=== PATIENT | female | born 1995 | race Caucasian/White ===

== ENCOUNTER 2017-05-15 16:59 | Emergency (ER) | payer OTHER ==
[2017-05-15] MEDS ORDERED: IPRATROPIUM/ALBUTEROL 3 ML DEYVIAL ONE (17:30)
--- NOTE | 2017-05-15 17:48 | EDPHY ---
H & P Stated Complaint: ACL repair today;lots of pain in R leg;can't take deep breaths ,R/O PE - Personal History LMP (Females 10-55): IUD In Place Current Tetanus Diphtheria and Acellular Pertussis (TDAP): Yes - Medical/Surgical History Hx Asthma: Yes - Social History Smoking Status: Never smoked Time Seen by Provider: 05/15/17 17:26 HPI/ROS: Chief complaint: Chest pain, trouble breathing History of present illness: This is a 21-year-old female who presents to the emergency department for chest pain and trouble breathing. Patient underwent a right ACL repair today. Upon getting home pain has increased in her right leg. She is now having discomfort in the chest. Pain is in the left, upper aspect of the chest. It feels tight. She is having trouble getting a breath. She denies associated signs or symptoms: No fever, cough. Review of systems: A 10 point review of systems was obtained and other than described above was negative (Lobito Harmon) - Physical Exam Exam: General Appearance: Alert, nontoxic. Eyes: Pupils equal and round no pallor or injection. ENT, Mouth: Mucous membranes moist. Respiratory: There are no retractions, lungs are clear to auscultation. Cardiovascular: Tachycardic with regular rhythm. Gastrointestinal: Abdomen is soft and non tender, no masses, bowel sounds normal. Neurological: Alert and oriented x4. Strength and sensation intact and symmetrical. Skin: Warm and dry, no rashes. Musculoskeletal: Right knee is in an immobilizer. Psychiatric: Patient is oriented X 3, there is no agitation. (Lobito Harmon) Constitutional: Initial Vital Signs Temperature (C) 36.9 C 05/15/17 17:03 Heart Rate 110 H 05/15/17 17:03 Respiratory Rate 18 05/15/17 17:03 Blood Pressure 101/76 05/15/17 17:03 O2 Sat (%) 95 05/15/17 17:03 O2 Delivery Mode Room Air O2 (L/minute) 2 Allergies/Adverse Reactions: No Known Allergies Allergy (Unverified 05/15/17 17:08) Home Medications: Medication Instructions Recorded Albuterol [Proventil Inhaler HFA 1 - 2 puffs IH 05/15/17 (*)] Escitalopram Oxalate [Lexapro] 10 mg PO 05/15/17 oxyCODONE HCL [Oxycontin] 10 mg PO 05/15/17 Medical Decision Making - Diagnostics Imaging: Discussed imaging studies w/ outbound call center representative Radiologist - Diagnostics Imaging Results: Imaging Impressions Chest/Thorax CTA 05/15/17 17:27 Impression: 1. Because of pronounced respiratory motion artifact and a suboptimal timing bolus, the study is of limited diagnostic utility. There is no evidence of central pulmonary artery thromboembolus. It may be worthwhile to consider bilateral lower extremity venous Doppler ultrasound, as clinically directed. 2. Mild nonspecific nodular groundglass infiltrates in the left lower lobe, perhaps representing early aspiration pneumonitis. Findings were discussed with Lobito Harmon PA-C at 18:31, on 05/15/2017. ED Course/Re-evaluation: Patient seen in conjunction with my secondary supervising physician Dr. Radha Martinez. Patient presents to the emergency department for chest discomfort and trouble breathing after undergoing an ACL surgery today. On presentation she is nontoxic. Tachycardic but not hypoxic. Blood studies obtained and largely unremarkable. Given my high suspicion for pulmonary embolism from recent surgery as well as tachycardia a CT for PE is obtained. This is a suboptimal study, however no large PEs noted. Questionable aspiration. Patient is treated with a nebulizer with improvement in symptoms. Symptomatically treated with Dilaudid and Valium with further improvement in symptoms. Pain in right leg still somewhat increased, likely because of nerve block wearing off. I believe she is appropriate for discharge home. Home care is discussed. They are to follow up with a primary care doctor tomorrow for recheck. Strict return precautions are given. The patient voiced understanding and agreement with plan. (Lobito Harmon) Differential Diagnosis: Included but not limited to pulmonary infections, hemothorax, pulmonary embolism , anxiety (Lobito Harmon) Other Provider: I evaluated and participated in the management of the patient. I also evaluated the patient independently. My co-signature indicates that I have reviewed this chart and I agree with the findings and plan of care as documented. My personal H&P findings include: 21-year-old female presenting after a complex ACL surgery earlier today. Patient has had increased and somewhat uncontrolled pain in her legs since discharge from the hospital after her surgery. She also developed a fullness in the right side of her chest associated with a wheezy sensation and some shortness of breath. Mother states that she had the same feelings before she left postop after her surgical procedure today which was improved with a albuterol nebulizer treatment. No fever. On examination, the patient is complaining of some shortness of breath on presentation which has improved significantly on my evaluation. Lungs are clear although she does have a somewhat wet sound and cough when she is up and exerting herself. Initially was tachycardic but this has also resolved with fluids. Evaluation included a CT angiogram for pulmonary emboli which was negative. Patient does have some signs of potential aspiration with ground-glass appearance in the left lower lobe. She is not hypoxic on room air. She is here with her mother. She received an additional neb treatment in the emergency department. She feels comfortable being discharged home with aggressive nebulizers, antibiotics, and pain medication. (Radha Martinez) - Data Points Laboratory Results: Laboratory Results 05/15/17 17:44 05/15/17 17:44 05/15/17 05/15/17 05/15/17 17:50 17:44 17:44 WBC RBC Hgb POC Hgb 16.0 gm/dL gm/dL (12.6-16.3) Hct POC Hct 47 % % (38-47) MCV MCH MCHC RDW Plt Count MPV Neut % (Auto) Lymph % (Auto) [place] % (Auto) Eos % (Auto) Baso % (Auto) Nucleat RBC Rel Count Absolute Neuts (auto) Absolute Lymphs (auto) Absolute Monos (auto) Absolute Eos (auto) Absolute Basos (auto) Absolute Nucleated RBC Immature Gran % Immature Gran # PT 14.5 SEC SEC (12.0-15.0) INR 1.11 (0.83-1.16) APTT 26.1 SEC SEC (23.0-38.0) POC Sodium 139 mEq/L mEq/L (135-145) Sodium POC Potassium 3.9 mEq/L mEq/L (3.3-5.0) Potassium POC Chloride 99 mEq/L mEq/L (97-110) Chloride Carbon Dioxide Anion Gap POC BUN 14 mg/dL mg/dL (7-23) BUN Creatinine POC Creatinine 0.6 mg/dL mg/dL (0.6-1.0) Estimated GFR Glucose POC Glucose 233 mg/dL H mg/dL (70-100) Calcium Beta HCG, Qual NEGATIVE 05/15/17 05/15/17 17:44 17:44 WBC 15.35 10^3/uL H 10^3/uL (3.80-9.50) RBC 4.57 10^6/uL 10^6/uL (4.18-5.33) Hgb 14.4 g/dL g/dL (12.6-16.3) POC Hgb Hct 41.3 % % (38.0-47.0) POC Hct MCV 90.4 fL fL (81.5-99.8) MCH 31.5 pg pg (27.9-34.1) MCHC 34.9 g/dL g/dL (32.4-36.7) RDW 12.2 % % (11.5-15.2) Plt Count 239 10^3/uL 10^3/uL (150-400) MPV 10.5 fL fL (8.7-11.7) Neut % (Auto) 94.5 % H % (39.3-74.2) Lymph % (Auto) 4.0 % L % (15.0-45.0) [place] % (Auto) 0.8 % L % (4.5-13.0) Eos % (Auto) 0.0 % L % (0.6-7.6) Baso % (Auto) 0.2 % L % (0.3-1.7) Nucleat RBC Rel Count 0.0 % % (0.0-0.2) Absolute Neuts (auto) 14.49 10^3/uL H 10^3/uL (1.70-6.50) Absolute Lymphs (auto) 0.62 10^3/uL L 10^3/uL (1.00-3.00) Absolute Monos (auto) 0.13 10^3/uL L 10^3/uL (0.30-0.80) Absolute Eos (auto) 0.00 10^3/uL L 10^3/uL (0.03-0.40) Absolute Basos (auto) 0.03 10^3/uL 10^3/uL (0.02-0.10) Absolute Nucleated RBC 0.00 10^3/uL 10^3/uL (0-0.01) Immature Gran % 0.5 % % (0.0-1.1) Immature Gran # 0.08 10^3/uL 10^3/uL (0.00-0.10) PT INR APTT POC Sodium Sodium 140 mEq/L mEq/L (135-145) POC Potassium Potassium 4.2 mEq/L mEq/L (3.5-5.2) POC Chloride Chloride 100 mEq/L mEq/L (97-110) Carbon Dioxide 21 mEq/l L mEq/l (22-31) Anion Gap 19 mEq/L H mEq/L (8-16) POC BUN BUN 12 mg/dL mg/dL (7-23) Creatinine 0.6 mg/dL mg/dL (0.6-1.0) POC Creatinine Estimated GFR > 60 Glucose 208 mg/dL H mg/dL (70-100) POC Glucose Calcium 9.8 mg/dL mg/dL (8.5-10.4) Beta HCG, Qual Medications Given: Discontinued Medications Albuterol (Proventil Neb) 3 ml IH EDNOW ONE Stop: 05/15/17 19:31 Last Admin: 05/15/17 19:32 Dose: 3 ml Diazepam (Valium) 2.5 mg IVP EDNOW ONE Stop: 05/15/17 19:30 Last Admin: 05/15/17 19:32 Dose: 2.5 mg Hydromorphone HCl (Dilaudid) 0.5 mg IVP EDNOW ONE Stop: 05/15/17 17:56 Last Admin: 05/15/17 18:16 Dose: 0.5 mg Oxycodone HCl (Oxycodone Ir) 5 mg PO EDNOW ONE Stop: 05/15/17 20:23 Last Admin: 05/15/17 20:39 Dose: 5 mg Point of Care Test Results: 05/15/17 17:50 POC Sodium 139 POC Potassium 3.9 POC Chloride 99 POC BUN 14 POC Creatinine 0.6 POC Glucose 233 H Departure - Departure Disposition: Home, Routine, Self-Care Clinical Impression: Chest pain Qualifiers: Chest pain type: unspecified Qualified Code(s): R07.9 - Chest pain, unspecified Condition: Good Instructions: Chest Pain (ED) Additional Instructions: Follow-up with a primary care doctor tomorrow for recheck without fail If symptoms worsen or new symptoms develop return to the emergency room for recheck Referrals: ZORAN Clark,. [Primary Care Provider] - As per Instructions
[2017-05-15] MEDS ORDERED: IOPAMIDOL (ISOVUE 370) 100 ML BTL IV ONE (17:55)
[2017-05-15] MEDS ORDERED: HYDROmorphONE/DILAUDID 1 MG/ML INJ IVP ONE (17:55)
[2017-05-15] MEDS ORDERED: HYDROmorphONE/DILAUDID 2 MG/ML INJ ONE ×2 (17:55→18:22)
[2017-05-15 18:11] LABS: PLATELET COUNT 239 10^3/uL (150-400)
[2017-05-15 18:14] LABS: INR 1.11 (0.83-1.16); PROTIME(PATIENT) 14.5 SEC (12.0-15.0)
[2017-05-15 19:17] VITALS: PULSE 88
[2017-05-15] MEDS ORDERED: ALBUTEROL 3 ML DEYVIAL ONE (19:24)
[2017-05-15] MEDS ORDERED: DIAZEPAM 5 MG/ML 1 ML SYR ONE (19:25)
[2017-05-15] MEDS ORDERED: DIAZEPAM 5 MG/ML 1 ML SYR IVP ONE (19:29)
[2017-05-15] MEDS ORDERED: ALBUTEROL 3 ML DEYVIAL IH ONE (19:30)
[2017-05-15] MEDS ORDERED: oxyCODONE IR 5 MG TAB PO ONE (20:22)
[2017-05-15 20:41] VITALS: BP 106/42; RESP 18; TEMP 98.2; O2SAT 96
== END 2017-05-15 20:47 | disposition home or self-care (01) ==
DX: R07.9 Chest pain, unspecified (principal); J45.909 Unspecified asthma, uncomplicated
CPT/HCPCS: 82947-QW; 96374; J1170; J3360; J7613; Q9967

== ENCOUNTER 2018-03-12 23:27 | Observation (INO) | payer OTHER ==
[2018-03-12] MEDS ORDERED: ONDANSETRON 4 MG/2 ML VIAL ONE (23:43)
[2018-03-12] MEDS ORDERED: ONDANSETRON 4 MG/2 ML VIAL IVP ONE (23:45)
[2018-03-12] MEDS ORDERED: NS 1,000 ML IV ONE (23:45)
[2018-03-12 23:57] LABS: PLATELET COUNT 222 10^3/uL (150-400)
--- NOTE | 2018-03-13 00:08 | EDPHY ---
H & P Stated Complaint: Abdominal pain since yesterday with N/V and fever. Took tyelenol [employer] Time Seen by Provider: 03/12/18 23:36 HPI/ROS: Chief Complaint: Abdominal pain HPI: 22-year-old woman is 1 week status post knee arthroscopy a presenting with abdominal pain that began yesterday. Patient states the pain was primarily in her central abdomen but today his migrated to the right. She has vomited. No diarrhea or constipation. No fevers or chills. No urinary urgency or frequency. She has not had a menstrual cycle in a year because she has an IUD. She does not believe she is . No vaginal discharge or bleeding. Pain is about an 8/10. She did take some Tylenol before coming in. Pain is worsened by movement or the bumps in the car. Improved with rest. ROS: 10 systems were reviewed and were negative except those elements noted in the HPI. PMH: Knee arthroscopy Social History: No smoking, no alcohol, no recreational drug use Family History: non-contributory Physical Exam: Gen: Awake, Alert, No Distress HEENT: Nose: no rhinorrhea Eyes: PERRLA, EOMI Mouth: Moist mucosa Neck: Supple, no JVD Chest: nontender, lungs clear to auscultation Heart: S1, S2 normal, no murmur Abd: Soft, moderate right-sided tenderness with voluntary guarding Back: no CVA tenderness, no midline tenderness Ext: no edema, non-tender Skin: no rash Neuro: CN II-XII intact, Sensation grossly intact, Strength 5/5 in bilateral upper and lower extremities - Personal History LMP (Females 10-55): IUD In Place Current Tetanus Diphtheria and Acellular Pertussis (TDAP): Yes - Medical/Surgical History Hx Asthma: Yes Other PMH: Right knee surgery, asthma, depression, anxiety, Rt shoulder repair, tonsillectomy - Social History Smoking Status: Never smoked Constitutional: Initial Vital Signs Temperature (C) 37.3 C 03/12/18 23:32 Heart Rate 83 03/12/18 23:32 Respiratory Rate 16 03/12/18 23:32 Blood Pressure 139/72 H 03/12/18 23:32 O2 Sat (%) 97 03/12/18 23:32 O2 Delivery Mode Room Air Allergies/Adverse Reactions: No Known Allergies Allergy (Unverified 05/15/17 17:08) Home Medications: Medication Instructions Recorded Albuterol [Proventil Inhaler HFA 1 - 2 puffs IH 05/15/17 (*)] Escitalopram Oxalate [Lexapro] 10 mg PO 05/15/17 oxyCODONE HCL [Oxycontin] 10 mg PO 05/15/17 Aldactone 1 mg 03/12/18 Hydroxyzine HCl 03/12/18 Medical Decision Making - Diagnostics Imaging Results: Abdominal ultrasound positive for acute appendicitis per Dr. Batres. Appendix measures 12 mm with hyperemia. They are reactive nodes. There is a mild perforation with some complex fluid ED Course/Re-evaluation: 22-year-old woman with acute appendicitis. Last ate at 6:00 p.m.. Last had a glass of water at 11:00 p.m.. I have ordered Flagyl and ceftriaxone. I have paged the general surgeon. - Data Points Laboratory Results: Laboratory Results 03/12/18 23:47 03/12/18 23:47 03/12/18 03/12/18 03/12/18 23:50 23:47 23:47 WBC RBC Hgb Hct MCV MCH MCHC RDW Plt Count MPV Neut % (Auto) Lymph % (Auto) [place] % (Auto) Eos % (Auto) Baso % (Auto) Nucleat RBC Rel Count Absolute Neuts (auto) Absolute Lymphs (auto) Absolute Monos (auto) Absolute Eos (auto) Absolute Basos (auto) Absolute Nucleated RBC Immature Gran % Immature Gran # Sodium 139 mEq/L mEq/L (135-145) Potassium 3.7 mEq/L mEq/L (3.5-5.2) Chloride 106 mEq/L mEq/L (97-110) Carbon Dioxide 23 mEq/l mEq/l (22-31) Anion Gap 10 mEq/L mEq/L (6-14) BUN 11 mg/dL mg/dL (7-23) Creatinine 0.7 mg/dL mg/dL (0.6-1.0) Estimated GFR > 60 Glucose 114 mg/dL H mg/dL (70-100) Calcium 9.3 mg/dL mg/dL (8.5-10.4) Total Bilirubin 0.8 mg/dL mg/dL (0.1-1.4) AST 21 IU/L IU/L (14-46) ALT 23 IU/L IU/L (9-52) Alkaline Phosphatase 77 IU/L IU/L (38-126) Total Protein 7.5 g/dL g/dL (6.3-8.2) Albumin 4.4 g/dL g/dL (3.5-5.0) Lipase 333 IU/L H IU/L (23-300) Beta HCG, Qual NEGATIVE Urine Color PALE YELLOW Urine Appearance CLEAR Urine pH 6.0 (5.0-7.5) Ur Specific [place] 1.003 (1.002-1.030) Urine Protein NEGATIVE (NEGATIVE) Urine Ketones NEGATIVE (NEGATIVE) Urine Blood NEGATIVE (NEGATIVE) Urine Nitrate NEGATIVE (NEGATIVE) Urine Bilirubin NEGATIVE (NEGATIVE) Urine Urobilinogen NEGATIVE EU EU (0.2-1.0) Ur Leukocyte Esterase NEGATIVE (NEGATIVE) Urine Glucose NEGATIVE (NEGATIVE) 03/12/18 23:47 WBC 14.73 10^3/uL H 10^3/uL (3.80-9.50) RBC 4.33 10^6/uL 10^6/uL (4.18-5.33) Hgb 13.5 g/dL g/dL (12.6-16.3) Hct 39.3 % % (38.0-47.0) MCV 90.8 fL fL (81.5-99.8) MCH 31.2 pg pg (27.9-34.1) MCHC 34.4 g/dL g/dL (32.4-36.7) RDW 12.5 % % (11.5-15.2) Plt Count 222 10^3/uL 10^3/uL (150-400) MPV 10.2 fL fL (8.7-11.7) Neut % (Auto) 76.5 % H % (39.3-74.2) Lymph % (Auto) 16.4 % % (15.0-45.0) [place] % (Auto) 5.4 % % (4.5-13.0) Eos % (Auto) 1.0 % % (0.6-7.6) Baso % (Auto) 0.3 % % (0.3-1.7) Nucleat RBC Rel Count 0.0 % % (0.0-0.2) Absolute Neuts (auto) 11.27 10^3/uL H 10^3/uL (1.70-6.50) Absolute Lymphs (auto) 2.42 10^3/uL 10^3/uL (1.00-3.00) Absolute Monos (auto) 0.79 10^3/uL 10^3/uL (0.30-0.80) Absolute Eos (auto) 0.14 10^3/uL 10^3/uL (0.03-0.40) Absolute Basos (auto) 0.05 10^3/uL 10^3/uL (0.02-0.10) Absolute Nucleated RBC 0.00 10^3/uL 10^3/uL (0-0.01) Immature Gran % 0.4 % % (0.0-1.1) Immature Gran # 0.06 10^3/uL 10^3/uL (0.00-0.10) Sodium Potassium Chloride Carbon Dioxide Anion Gap BUN Creatinine Estimated GFR Glucose Calcium Total Bilirubin AST ALT Alkaline Phosphatase Total Protein Albumin Lipase Beta HCG, Qual Urine Color Urine Appearance Urine pH Ur Specific [place] Urine Protein Urine Ketones Urine Blood Urine Nitrate Urine Bilirubin Urine Urobilinogen Ur Leukocyte Esterase Urine Glucose Medications Given: Discontinued Medications Sodium Chloride (Ns) 1,000 mls @ 0 mls/hr IV EDNOW ONE; Wide Open PRN Reason: Protocol Stop: 03/12/18 23:46 Last Admin: 03/12/18 23:49 Dose: 1,000 mls Morphine Sulfate (Morphine) 4 mg IVP EDNOW ONE Stop: 03/12/18 23:47 Last Admin: 03/12/18 23:48 Dose: 4 mg Ondansetron HCl (Zofran) 4 mg IVP EDNOW ONE Stop: 03/12/18 23:46 Last Admin: 03/12/18 23:48 Dose: 4 mg Departure - Departure Disposition: [facility] Inpatient Acute Clinical Impression: Acute appendicitis Condition: Good Referrals: NONE *PRIMARY CARE P,. [Primary Care Provider] - As per Instructions
--- NOTE | 2018-03-13 01:20 | PDGENHP ---
History and Physical - Chief Complaint abdominal pain - History of Present Illness 22yo otherwise healthy female. Has had about 12hs of abdominal pain which started yesterday around noon. Since the onset which was initially periumbilical , it has progressed and relocated to the Q. She describes a sharp, constant pain without radiation. She has vomited once at home and endorses fevers and chills. History Information - Allergies/Home Medication List Allergies/Adverse Reactions: No Known Allergies Allergy (Unverified 05/15/17 17:08) Home Medications: Albuterol [Proventil Inhaler HFA (*)] 1 - 2 puffs IH 05/15/17 [Last Taken Unknown] Escitalopram Oxalate [Lexapro] 10 mg PO 05/15/17 [Last Taken Unknown] oxyCODONE HCL [Oxycontin] 10 mg PO 05/15/17 [Last Taken Unknown] Aldactone 1 mg 03/12/18 [Last Taken Unknown] Hydroxyzine HCl 03/12/18 [Last Taken Unknown] I have personally reviewed and updated: family history, medical history, social history, surgical history Past Medical History: asthma, depression - Surgical History Additional surgical history: multiple orthopedic surgeries - Social History Smoking Status: Never smoked Review of Systems Review of Systems: ROS: 10pt was reviewed & negative except for what was stated in HPI & below Physical Exam Physical Exam: Temp Pulse Resp BP Pulse Ox 36.6 C 80 16 122/78 H 97 03/13/18 01:02 03/13/18 01:02 03/13/18 01:02 03/13/18 01:02 03/13/18 01:02 Constitutional: no apparent distress, appears nourished, not in pain Eyes: PERRL, anicteric sclera, EOMI Ears, Nose, Mouth, Throat: moist mucous membranes, hearing normal, ears appear normal, no oral mucosal ulcers Cardiovascular: regular rate and rhythym, no murmur, rub, or gallop, No edema Respiratory: no respiratory distress, no rales or rhonchi, clear to auscultation Gastrointestinal: normoactive bowel sounds, other (TTP in RLQ at [facility]. No peritoneal signs currently ) Genitourinary: no bladder fullness, no bladder tenderness Skin: warm, normal color, no rashes or abrasions, no fluctuance, no induration, No mottled Musculoskeletal: full muscle strength, no muscle tenderness, normal joint ROM, no joint effusions Psychiatric: interacting appropriately, not anxious, not encephalopathic, thought process linear Lymph, Heme, Immunologic: no cervical LAD, no supraclavicular LAD Lab Data & Imaging Review 03/12/18 23:47 03/12/18 23:47 WBC 14.73 10^3/uL (3.80-9.50) H 03/12/18 23:47 RBC 4.33 10^6/uL (4.18-5.33) 03/12/18 23:47 Hgb 13.5 g/dL (12.6-16.3) 03/12/18 23:47 Hct 39.3 % (38.0-47.0) 03/12/18 23:47 MCV 90.8 fL (81.5-99.8) 03/12/18 23:47 MCH 31.2 pg (27.9-34.1) 03/12/18 23:47 MCHC 34.4 g/dL (32.4-36.7) 03/12/18 23:47 RDW 12.5 % (11.5-15.2) 03/12/18 23:47 Plt Count 222 10^3/uL (150-400) 03/12/18 23:47 MPV 10.2 fL (8.7-11.7) 03/12/18 23:47 Neut % (Auto) 76.5 % (39.3-74.2) H 03/12/18 23:47 Lymph % (Auto) 16.4 % (15.0-45.0) 03/12/18 23:47 [place] % (Auto) 5.4 % (4.5-13.0) 03/12/18 23:47 Eos % (Auto) 1.0 % (0.6-7.6) 03/12/18 23:47 Baso % (Auto) 0.3 % (0.3-1.7) 03/12/18 23:47 Nucleat RBC Rel Count 0.0 % (0.0-0.2) 03/12/18 23:47 Absolute Neuts (auto) 11.27 10^3/uL (1.70-6.50) H 03/12/18 23:47 Absolute Lymphs (auto) 2.42 10^3/uL (1.00-3.00) 03/12/18 23:47 Absolute Monos (auto) 0.79 10^3/uL (0.30-0.80) 03/12/18 23:47 Absolute Eos (auto) 0.14 10^3/uL (0.03-0.40) 03/12/18 23:47 Absolute Basos (auto) 0.05 10^3/uL (0.02-0.10) 03/12/18 23:47 Absolute Nucleated RBC 0.00 10^3/uL (0-0.01) 03/12/18 23:47 Immature Gran % 0.4 % (0.0-1.1) 03/12/18 23:47 Immature Gran # 0.06 10^3/uL (0.00-0.10) 03/12/18 23:47 Sodium 139 mEq/L (135-145) 03/12/18 23:47 Potassium 3.7 mEq/L (3.5-5.2) 03/12/18 23:47 Chloride 106 mEq/L (97-110) 03/12/18 23:47 Carbon Dioxide 23 mEq/l (22-31) 03/12/18 23:47 Anion Gap 10 mEq/L (6-14) 03/12/18 23:47 BUN 11 mg/dL (7-23) 03/12/18 23:47 Creatinine 0.7 mg/dL (0.6-1.0) 03/12/18 23:47 Estimated GFR > 60 03/12/18 23:47 Glucose 114 mg/dL (70-100) H 03/12/18 23:47 Calcium 9.3 mg/dL (8.5-10.4) 03/12/18 23:47 Total Bilirubin 0.8 mg/dL (0.1-1.4) 03/12/18 23:47 AST 21 IU/L (14-46) 03/12/18 23:47 ALT 23 IU/L (9-52) 03/12/18 23:47 Alkaline Phosphatase 77 IU/L (38-126) 03/12/18 23:47 Total Protein 7.5 g/dL (6.3-8.2) 03/12/18 23:47 Albumin 4.4 g/dL (3.5-5.0) 03/12/18 23:47 Lipase 333 IU/L (23-300) H 03/12/18 23:47 Beta HCG, Qual NEGATIVE 03/12/18 23:47 Urine Color PALE YELLOW 03/12/18 23:50 Urine Appearance CLEAR 03/12/18 23:50 Urine pH 6.0 (5.0-7.5) 03/12/18 23:50 Ur Specific [place] 1.003 (1.002-1.030) 03/12/18 23:50 Urine Protein NEGATIVE (NEGATIVE) 03/12/18 23:50 Urine Ketones NEGATIVE (NEGATIVE) 03/12/18 23:50 Urine Blood NEGATIVE (NEGATIVE) 03/12/18 23:50 Urine Nitrate NEGATIVE (NEGATIVE) 03/12/18 23:50 Urine Bilirubin NEGATIVE (NEGATIVE) 03/12/18 23:50 Urine Urobilinogen NEGATIVE EU (0.2-1.0) 03/12/18 23:50 Ur Leukocyte Esterase NEGATIVE (NEGATIVE) 03/12/18 23:50 Urine Glucose NEGATIVE (NEGATIVE) 03/12/18 23:50 Visualized and Interpreted imaging results: Yes Interpretation: US: appendicitis, some stranding concerning for poss perforation Assessment & Plan Assessment: Acute appendicitis (Acute) Plan: 22yo F c acute appendicitis. - IV abx in ED - to OR for lap AALIYAH galvan discussed. She may have perforation which may necessitate open procedure, also may need prolonged abx IV or PO
[2018-03-13] MEDS ORDERED: BUPIVACAINE 0.25% 30 ML SDV ONE (01:49)
[2018-03-13] MEDS ORDERED: EPINEPHrine 1 MG/ML INJ ONE (01:49)
[2018-03-13] MEDS ORDERED: fentaNYL 100 MCG/2 ML INJ ONE ×3 (01:50→03:19)
[2018-03-13] MEDS ORDERED: PROPOFOL 200 MG/20 ML VIAL ONE (01:51)
[2018-03-13] MEDS ORDERED: LIDOCAINE 2% 5 ML SDV ONE (01:52)
[2018-03-13] MEDS ORDERED: ROCURONIUM 50 MG/5 ML VIAL ONE (01:52)
[2018-03-13] MEDS ORDERED: DEXAMETHASONE 4 MG/ML VIAL ONE (01:53)
[2018-03-13] MEDS ORDERED: SUGAMMADEX SODIUM 200 MG/2 ML VIAL IVP ONE (01:53)
[2018-03-13] MEDS ORDERED: KETOROLAC 30 MG/1 ML SDV ONE (01:53)
[2018-03-13] MEDS ORDERED: ONDANSETRON 4 MG/2 ML VIAL ONE (01:53)
[2018-03-13] MEDS ORDERED: MIDAZOLAM 2 MG/2 ML VIAL IVP ONE (01:57)
--- NOTE | 2018-03-13 01:58 | POSTANESTH ---
Post Anesthetic Evaluation Cardiovascular Status: Normal, Stable Respiratory Status: Normal, Stable Level of Consciousness/Mental Status: Can Participate in Eval, Mildly Sleepy, Arousable Pain Control: Adequate, Prn Tx Ordered Nausea/Vomiting Control: Adequate, Prn Tx Ordered Complications Possibly Related to Anesthesia: None Noted
--- NOTE | 2018-03-13 01:58 | PDANEPAE ---
ANE History of Present Illness lap appy HERNAN Past Medical History - Cardiovascular History Hx Hypertension: No Hx Arrhythmias: No Hx Chest Pain: No Hx Coronary Artery / Peripheral Vascular Disease: No Hx CHF / Valvular Disease: No Hx Palpitations: No - Pulmonary History Hx COPD: No Hx Asthma/Reactive Airway Disease: No Hx Recent Upper Respiratory Infection: No Hx Oxygen in Use at Home: No Hx Sleep Apnea: No ANE Review of Systems Review of systems is: negative Review of Systems: - Exercise capacity Exercise capacity: >=4 METS ANE Patient History - Allergies Allergies/Adverse Reactions: No Known Allergies Allergy (Unverified 05/15/17 17:08) - Home Medications Home medications: home medication list seen and reviewed Home Medications: Albuterol [Proventil Inhaler HFA (*)] 1 - 2 puffs IH 05/15/17 [Last Taken Unknown] Escitalopram Oxalate [Lexapro] 10 mg PO 05/15/17 [Last Taken Unknown] oxyCODONE HCL [Oxycontin] 10 mg PO 05/15/17 [Last Taken Unknown] Aldactone 1 mg 03/12/18 [Last Taken Unknown] Hydroxyzine HCl 03/12/18 [Last Taken Unknown] - NPO status NPO Since - Liquids (Date): 03/12/18 NPO Since - Liquids (Time): 23:00 NPO Since - Solids (Date): 03/12/18 NPO Since - Solids (Time): 18:00 - Anes Hx Anes Hx: no prior problems - Smoking Hx Smoking Status: Never smoked ANE Labs/Vital Signs - Labs Result Diagrams: 03/12/18 23:47 03/12/18 23:47 - Vital Signs Blood Pressure: 122/78 Heart Rate: 80 Respiratory Rate: 16 O2 Sat (%): 97 Height: 170.18 cm Weight: 75.75 kg ANE Physical Exam - Airway Neck exam: FROM Mallampati Score: Class 1 Mouth exam: normal dental/mouth exam - Pulmonary Pulmonary: no respiratory distress - Cardiovascular Cardiovascular: regular rate and rhythym - ASA Status ASA Status: II, E ANE Anesthesia Plan Anesthesia Plan: general endotracheal anesthesia
[2018-03-13] MEDS ORDERED: LR 500 ML IV PRN (02:25)
[2018-03-13] MEDS ORDERED: NALOXONE HCL 0.4 MG/ML INJ IVP PRN (02:25)
[2018-03-13] MEDS ORDERED: ACETAMINOPHEN 500 MG TAB PO PRN (02:25)
[2018-03-13] MEDS ORDERED: oxyCODONE IR 5 MG TAB PO PRN ×2 (02:25→07:59)
[2018-03-13] MEDS ORDERED: PROMETHAZINE HCL 25 MG/ML INJ IVP PRN (02:25)
[2018-03-13] MEDS ORDERED: HYDROmorphONE/DILAUDID 2 MG/ML INJ IVP PRN (02:25)
[2018-03-13] MEDS ORDERED: ONDANSETRON 4 MG/2 ML VIAL IVP PRN ×2 (02:25→02:56)
[2018-03-13] MEDS ORDERED: HYDROCODONE/APAP 5/325 TAB PO PRN (02:25)
[2018-03-13] MEDS ORDERED: fentaNYL 100 MCG/2 ML INJ IVP PRN (02:25)
[2018-03-13] MEDS ORDERED: ALBUTEROL 3 ML DEYVIAL IH PRN (02:25)
[2018-03-13] MEDS ORDERED: HYDROmorphONE/DILAUDID 1 MG/ML INJ IVP PRN (02:56)
--- NOTE | 2018-03-13 02:58 | POSTOPPROG ---
Post Op Note Date of Operation: 03/13/18 Surgeon: Rohan Mendoza Anesthesiologist: Lila Anesthesia: GET(General Endotracheal) Pre-op Diagnosis: appendicitis Post-op Diagnosis: same Procedure: Laparoscopic appendectomy Findings: acute, non perforated Inf/Abcess present in the surg proc area at time of surgery?: No EBL: Minimal Specimen(s): apendix
[2018-03-13] MEDS ORDERED: D5W 1/2 NS W/ 20 KCl/L 1,000 ML IV SCH (03:00)
[2018-03-13] MEDS ORDERED: IBUPROFEN 600 MG TAB PO SCH (06:00)
[2018-03-13 08:54] VITALS: BP 104/58
--- NOTE | 2018-03-13 09:54 | PDDCSUM ---
Discharge Summary Discharge Summary: DISCHARGE SUMMARY Date of Admission March 12 Date of Discharge March 13 DISCHARGE DIAGNOSES -acute appendicitis HOSPITAL COURSE The patient was admitted from the ED and taken to the operating room where they underwent an uneventful laparoscopic appendectomy. They were subsequently taken to the PACU and then the general medical floor. The hospital course was uneventful, their diet was advanced to a regular diet which was well tolerated and their pain was well controlled. They were discharged home in stable condition on the morning of the DISCHARGE MEDICATIONS Oxycodone as needed for pain DISPOSITION Home FOLLOW UP Follow up with me in the office in 10-14 days for a general post-operative visit
--- NOTE | 2018-03-13 15:21 | GOP ---
DATE OF OPERATION: 03/13/2018 SURGEON: Rhoan Mendoza MD DIPLOMA MEDICAL ASSISTANT: None. ANESTHESIA: General endotracheal. ANESTHESIOLOGIST: Smooth Sharp MD. PREOPERATIVE DIAGNOSIS: Acute appendicitis. POSTOPERATIVE DIAGNOSIS: Acute appendicitis. PROCEDURE PERFORMED: Laparoscopic appendectomy. FINDINGS: Acutely indurated appendix wall but not frankly perforated. SPECIMENS: Appendix. ESTIMATED BLOOD LOSS: 5 cc. DESCRIPTION OF PROCEDURE: The patient was greeted in the preoperative suite. Once again, risks, paxton efits, and alternatives were discussed. Consent was signed. She was then brought back to the operat hubert suite, placed on the OR table in supine position. After all anesthesia machines including SCDs w ere on and functioning, [employer] time-out was performed. After successful induction of general anesthesia, the patient's abdomen was prepped and draped in typical sterile fashion. I c ommenced the procedure by creating an infraumbilical cutdown through which a Veress needle was passed . After achieving pneumoperitoneum to 15 mmHg, I inserted a 12 mm Visiport in the infraumbilical sit e. I then placed two additional 5 mm trocars, one suprapubic, one in the left lower quadrant, both u nder direct visualization. I then identified the appendix by tracing the taenia inferiorly. It had dipped down into the pelvis. It was indurated but not frankly perforated. I first skeletonized the appendix by taking the mesoappendix using the Harmonic Scalpel. Once successfully skeletonized, I di vided it with an Endo-LAM white load staple load. Specimen was then removed. I irrigated the right lower quadrant and pelvis with 500 cc sterile saline, noting clear effluent in the suction canister. I then interrogated my staple line and mesoappendix. The staple line was oozing somewhat, which was made hemostatic with multiple 5 mm hemoclips. Local anesthesia was then infiltrated into all the po rt sites under direct visualization. They were then removed. I evacuated my pneumoperitoneum. The infraumbilical port site was closed with an 0 Vicryl stitch, noting excellent fascial reapproximation . Skin was closed with 4-0 Monocryl over which Dermabond was placed. The patient was then extubated in the operative suite and taken to PACU in satisfactory condition. DRAINS: None. COUNTS: All counts were reported as correct x2. /[id number]/MODL
== END 2018-03-13 12:30 | disposition home or self-care (01) ==
LOC: FOB 03-13 03:47
PROVIDERS: ADMIT Surgery; ATTEND Surgery
PROC: 0DTJ4ZZ Resection of Appendix, Percutaneous Endoscopic Approach (ICD-10-PCS; principal; 2018-03-13 02:00)
DX: K35.80 Unspecified acute appendicitis (principal)
CPT/HCPCS: 44970; 76705; 96361; 96365; 96368; 96375; 96376; 99285; G0378; J0171; J0696; J1100; J1170; J1885; J2270; J2405; J2704; J3010